=== PATIENT | female | born 1980 | race Caucasian/White ===

== ENCOUNTER 2022-02-10 19:29 | Emergency (ER) | payer OTHER, SELFPAY ==
[2022-02-10 19:35] VITALS: BP 135/86; PULSE 109; RESP 16; TEMP 36.7; O2SAT 100; BMI 19.5
--- NOTE | 2022-02-10 20:29 | ED_ITS ---
HPI - General Adult General: Chief complaint: Dental/Oral Stated complaint: Something Stuck in Throat Time Seen by Provider: 02/10/22 20:04 Source: patient Mode of arrival: ambulatory Limitations: no limitations History of Present Illness: Patient is a 41-year-old female who presents to ED today with complaints of throat pain. Patient tells me just prior to arrival she was eating a piece of very hot breaded shrimp. She states when she went to swallow it she began choking. She states she was able to cough up the piece of shrimp but believes that she burned the back of her throat. She is not having any foreign body sensation. She is controlling her secretions normally. She is not having any difficulty breathing. Patient tells me she has a history of anxiety and feels very anxious that her throat is going to swell shut. She states she has been able to drink since the incident without difficulty. Onset (ago): hour(s) Location: mouth (throat) Severity: mild Pain Consistency: constant Relieving factors: none Exacerbating factors: other (swallowing) Associated symptoms: Reports no associated symptoms; Deny dyspnea, nausea or vomiting Treatments prior to arrival: none Review of Systems ENMT: Reports: throat pain and odynophagia; Denies: uvular edema, enlarged tonsils, hoarseness, swelling of lips/tongue, oral sores or dental pain Resp: Denies: dyspnea, productive cough or non-productive cough GI: Denies: nausea or vomiting Musc: Denies: neck pain PFS ED PFSH: Social History Smoking and tobacco status: never smoked Physical Exam Const: COMMON NORMALS: average body habitus, patient oriented x3, no limitations, healthy appearing, alert and well nourished GENERAL APPEARANCE: cooperative and anxious ORIENTATION/CONSCIOUSNESS: Yes awake, Yes oriented to person, Yes oriented to place and Yes oriented to time HENMT: MOUTH: Normal oral and palatal mucosa present, lip normal and tongue normal; no audible dysphonia, no drooling and no muffled voice THROAT: posterior oropharynx normal, tonsils normal and uvula midline; no uvular edema Neck/C-Spine: COMMON NORMALS: full ROM GENERAL: Yes normal visual inspection, No anterior neck swelling and No submandibular swelling Resp: COMMON NORMALS: normal respiratory effort and clear to auscultation bilaterally AUSCULTATION: clear to auscultation bilaterally Cardio: COMMON NORMALS: regular rate and regular rhythm RATE: regular rate RHYTHM: regular rhythm Neuro: COMMON NORMALS: patient oriented x3 SENSORIUM/ORIENTATION: Yes alert, Yes oriented to person, Yes oriented to place and Yes oriented to time Course Vital Signs: Vital signs: Vital Signs Temperature 98.1 F 02/10/22 19:35 Pulse Rate 109 H 02/10/22 19:35 Respiratory Rate 16 02/10/22 19:35 Blood Pressure 135/86 02/10/22 19:35 Pulse Oximetry 100 02/10/22 19:35 Oxygen Delivery Me thod 02/10/22 19:35 MDM - General Adult Medical Decision Making No concern for fb aspiration or esophageal food bolus/impaction. Patient feels significantly better after gargling/swallowing viscous lidocaine. She was able to drink normally and eat soft food applesauce/pudding/etc. She is stable for DC at this time. Recommend soft foods x 48 hours. Return to ED precautions given. Discharge Plan Discharge Patient Disposition: Home Clinical Impression: Throat pain Condition: Stable Prescriptions: New Lidocaine Viscous 2 % solution 15 ml MUCOUS MEM QID Qty: 100 0RF Rx Instructions: Mix with water and gargle for 30 seconds, then swallow No Action duloxetine 30 mg capsule,delayed release(DR/EC) 30 mg PO DAILY gabapentin 300 mg capsule 300 mg PO DAILY baclofen 10 mg tablet 10 mg PO QID methylprednisolone [Medrol (Rivas)] 4 mg tablets,dose pack See Rx Instructions PO PER PKG DIR Qty: 21 0RF Rx Instructions: PO PER PKG DIR montelukast [Singulair] 10 mg tablet 10 mg PO DAILY Qty: 60 0RF Discharge Orders: Discharge ED (Routine); Ordered 02/10/22 Ordered By: Sivan Tai Referrals: Shilpa Echeverria FNP [Primary Care Provider] - Coding Level of Care Code ED [employer] for Chg Fwd Exam Detailed
== END 2022-02-10 21:12 | disposition home or self-care (01) ==
PROVIDERS: Emergency Provider Physician Assistant; PCP Nurse Practitioner
DX: R07.0 Pain in throat (principal)
CPT/HCPCS: 99283